=== PATIENT | male | born 1955 | race Caucasian/White ===

== ENCOUNTER → 2017-07-25 | Outpatient (CLI) | payer OTHER ==
[~2017-07-25] MED LIST: Ambien PO; CELEBREX200 MG PO; COUMADIN1 MG PO; Coumadin,Jantoven PO; DIOVAN320 MG PO; OMEPRAZOLE20 MG PO; PERCOCET 5/31 TABLET PO; QUINAPRIL-HCTZ1 EAC2 PO; TRICOR145 MG PO; WARFARIN SODIUM4 MG PO
== END | disposition home or self-care (01) ==
LOC: RES 08:51
DX: J98.4 Other disorders of lung (principal)
CPT/HCPCS: 94070; 94726; 94729